=== PATIENT | female | born 1970 | race Caucasian/White ===

== ENCOUNTER 2019-03-29 13:34 | Inpatient (IN) ==
--- NOTE | 2019-03-29 14:13 | PROVIDER DOCUMENTATION ---
HPI-Respiratory General - General Chief Complaint: Shortness of Breath Stated Complaint: SENT FROM URGENT CARE SOB Time Seen by Provider: 03/29/19 14:01 Source: patient Allergies/Adverse Reactions: Patient Allergies Allergy/AdvReac Type Severity Reaction Status Date / Time No Known Allergies Allergy Verified 12/20/14 16:29 Home Medications: Home Medication List Medication Instructions Recorded Confirmed Last Taken Type Aripiprazole [Abilify] 10 mg PO DAILY 03/29/19 03/29/19 Unknown History Duloxetine [Cymbalta] 60 mg PO DAILY 03/29/19 03/29/19 Unknown History Hydrocodone/Acetaminophen [[place] 1 ea PO TID 03/29/19 03/29/19 Unknown History 10-325 Tablet] Phentermine HCl [Adipex-P] 1 tab PO DAILY 03/29/19 03/29/19 Unknown History - History of Present Illness-Resp Nature of Presenting Problem: Patient is a 48yo F who presents with complaints of dry cough, shortness of breath, fatigue, dyspnea on exertion, and decreased appetite x3 months. Reports upon awakening this morning, symptoms worsened and she was seen at [facility]. States they mazin blood and did a chest x-ray. Reports she was told her chest x-ray was "fluffy" and to come to the ER. Patient also reports mild orthopnea. Reports she is a daily smoker and has been for years. Denies any previous diagnoses of COPD. Denies fever/chills, CP, palpitations, syncope, abdominal pain, n/v/d. Upon examination, patient is able to speak in sentences with some pauses between words. No accessory muscle usage/retractions noted, however some increased work of breathing noted. O2 saturation 94-97% on RA. Quality of Pain: reports: aching Severity in ED: reports: mild Onset/Duration: reports: this morning (worsened), other (3 months) Timing: reports: still present, getting worse Exposure: reports: unknown cause Cough Quality/Degree: reports: mild, dry cough Current Respiratory Medication Therapy: Initiated none Modifying Factors: improves with: rest, sitting upright. worse with: exertion, lying down Associated Symptoms: reports: cough (dry), shortness of breath. denies: chest pain/soreness, dizziness, facial pain, fever/chills, flu-like symptoms, headac he, hurts to breathe, nasal congestion, sweaty, wheezing Similar Symptoms Previously?: No Recently seen or treated by another doctor?: No Review of Systems - Adult - REVIEW OF SYSTEMS - ADULT Constitutional: reports: fatique. denies: chills, fever, night sweats, weight gain, weight loss Eyes: reports: no symptoms reported Ears, Nose, Mouth & Throat: reports: no symptoms reported. denies: ear pain, sinus problem, throat pain Cardiovascular: reports: no symptoms reported. denies: chest pain, palpitations Respiratory: reports: see HPI, cough (dry), dyspnea on exertion, shortness of breath. denies: pleurisy, wheezing Gastrointestinal: reports: see HPI, poor appetite. denies: abdominal pain, nausea, vomiting Genitourinary: reports: no symptoms reported Musculoskeletal: reports: no symptoms reported Integumentary: reports: no symptoms reported Neurological: reports: no symptoms reported. denies: dizziness/vertigo, headache/migraines Psychiatric: reports: no symptoms reported Endocrine: reports: no symptoms reported Past History - Adult - PAST MEDICAL HISTORY-ADULT Review of Records: reports: Nursing Assessment Review, Medications Reviewed Major Childhood Illnesses: reports: denies history Cardiovascular: reports: denies history Respiratory: reports: denies history Gastrointestinal: reports: denies history Obstetrical/Gynecological: reports: denies history Genitourinary: reports: denies history Musculoskeletal: reports: denies history Neurological: reports: denies history Endocrine/Immune: reports: denies history Other Conditions: reports: denies history - PRIOR SURGERIES/PROCEDURES Surgical/Procedure History: reports: reviewed, not pertinent, hysterectomy, tonsillectomy - PRIOR HOSPITALIZATIONS Prior Hospitalizations: reports: none - IMMUNIZATION STATUS Childhood Immunizations: See Nurse Assessment Flu Vaccine: See Nurse Assessment - FAMILY HISTORY Family History: reviewed, not pertinent - SOCIAL HISTORY Smoking: cigarettes Provider spent 3-5 mins advising pt. on dangers of tobacco.: Discussed manners to quit use, and f/u contacts for add'l counseling. Physical Exam-General - PHYSICAL EXAM-ADULT Initial Vital Signs Reviewed: Yes - CONSTITUTIONAL General Appearance: alert, mild distress. negative: lethargic, slow to respond, obtunded - EYES Eyes: PERRL/EOMI, pink conjunctivae. negative: EOM palsy, scleral icterus - HEAD, EARS, NOSE, MOUTH & THROAT HENMT: normocephalic/atraumatic, moist mucous membranes - NECK Neck: non-tender, full range of motion, supple, normal inspection - RESPIRATORY Respiratory: chest non-tender, no pleuratic chest pain, no accessory muscle use, rhonchi (all lung brownlee), other (some increased work of breathing). negative: decreased breath sounds, crackles, rales, stridor, wheezing, retractions, splinting - CARDIOVASCULAR Cardiovascular: tachycardia (106) - GASTROINTESTINAL (ABDOMEN) Abdominal Exam: normal bowel sounds, non tender, soft - MUSCULOSKELETAL Back Exam: normal inspection Extremity: normal range of motion, non-tender, normal gait, normal inspection, pelvis stable - SKIN Integumentary: normal color, warm/dry. negative: cyanosis, jaundice, mottled, pallor - NEUROLOGIC Neurologic: grossly normal - PSYCHIATRIC Psych/Mental Status: normal mood/affect, normal thought content, normal thought process, oriented x 3 Progress - PLAN OF CARE/RESULTS Progress/Plan/Lab Results: Vital Signs - 8 hr 03/29/19 13:41 03/29/19 14:33 03/29/19 15:53 Temperature 98.2 F Pulse Rate 106 H 99 H 100 H Respiratory Rate 19 22 23 Blood Pressure 119/80 O2 Sat by Pulse Oximetry 94 L Laboratory Results - last 24 hr 03/29/19 03/29/19 03/29/19 14:10 14:10 14:10 WBC 12.54 H RBC 3.71 L Hgb 10.5 L Hct 31.8 L MCV 85.7 MCH 28.3 MCHC 33.0 RDW Std Deviation 17.2 H Plt Count 241 MPV 8.9 Immature Gran % (Auto) 0.0 Neut % (Auto) 82.9 H Lymph % (Auto) 12.4 L Prentiss % (Auto) 4.3 Eos % (Auto) 0.3 Baso % (Auto) 0.1 Immature Gran # (Auto) 0.00 Neut # (Auto) 10.39 H Lymph # (Auto) 1.56 Prentiss # (Auto) 0.54 Eos # (Auto) 0.04 Baso # (Auto) 0.01 D-Dimer, Quantitative Specimen Type Sample Site pH pCO2 pO2 HCO3 Base Excess Oxyhemoglobin ABG O2 Sat (Calculated) ABG O2 Saturation ABG Carboxyhemoglobin ABG Methemoglobin Toño Test A-a O2 Difference Total Hemoglobin Lactate Liter Flow Blood Gas Modality FiO2 % Sodium 147 H Potassium 3.5 Chloride 112 H Carbon Dioxide 18 L Anion Gap 17 BUN 15 Creatinine 1.0 H Estimated GFR/1.73 m2 59 BUN/Creatinine Ratio 15 Glucose 127 H Calculated Osmolality 295 Calcium 8.8 Total Bilirubin < 0.15 L AST 40 H ALT 18 Alkaline Phosphatase 100 Creatine Kinase 97 Troponin T Oph-W-Qyugvucywdd Pept 187 Total Protein 6.5 Albumin 4.0 Globulin 2.5 Albumin/Globulin Ratio 1.6 Urine Source Urine Color Urine Turbidity Urine pH Ur Specific [place] Urine Protein Ur Glucose (Stick) Ur Ketones (Stick) Urine Blood Urine Nitrite Urine Bilirubin Urobilinogen Dipstick Urine Leukocytes Urine WBC (Auto) Urine RBC (Auto) U Epithel Cells (Auto) Urine Bacteria (Auto) 03/29/19 03/29/19 03/29/19 14:10 14:10 14:40 WBC RBC Hgb Hct MCV MCH MCHC RDW Std Deviation Plt Count MPV Immature Gran % (Auto) Neut % (Auto) Lymph % (Auto) Prentiss % (Auto) Eos % (Auto) Baso % (Auto) Immature Gran # (Auto) Neut # (Auto) Lymph # (Auto) Prentiss # (Auto) Eos # (Auto) Baso # (Auto) D-Dimer, Quantitative 0.62 H Specimen Type ARTERIAL Sample Site R RADIAL pH 7.47 H pCO2 30 L pO2 80 HCO3 24.0 Base Excess -1.2 Oxyhemoglobin 95.7 ABG O2 Sat (Calculated) 13.7 L ABG O2 Saturation 100.2 H ABG Carboxyhemoglobin 4.20 H ABG Methemoglobin 0.3 Toño Test YES A-a O2 Difference 32.0 Total Hemoglobin 10.1 L Lactate 0.50 Liter Flow 0.0 Blood Gas Modality ROOM AIR FiO2 % 21.0 Sodium Potassium Chloride Carbon Dioxide Anion Gap BUN Creatinine Estimated GFR/1.73 m2 BUN/Creatinine Ratio Glucose Calculated Osmolality Calcium Total Bilirubin AST ALT Alkaline Phosphatase Creatine Kinase Troponin T < 0.010 Eio-Z-Ugcseshszae Pept Total Protein Albumin Globulin Albumin/Globulin Ratio Urine Source Urine Color Urine Turbidity Urine pH Ur Specific [place] Urine Protein Ur Glucose (Stick) Ur Ketones (Stick) Urine Blood Urine Nitrite Urine Bilirubin Urobilinogen Dipstick Urine Leukocytes Urine WBC (Auto) Urine RBC (Auto) U Epithel Cells (Auto) Urine Bacteria (Auto) 03/29/19 14:55 WBC RBC Hgb Hct MCV MCH MCHC RDW Std Deviation Plt Count MPV Immature Gran % (Auto) Neut % (Auto) Lymph % (Auto) Prentiss % (Auto) Eos % (Auto) Baso % (Auto) Immature Gran # (Auto) Neut # (Auto) Lymph # (Auto) Prentiss # (Auto) Eos # (Auto) Baso # (Auto) D-Dimer, Quantitative Specimen Type Sample Site pH pCO2 pO2 HCO3 Base Excess Oxyhemoglobin ABG O2 Sat (Calculated) ABG O2 Saturation ABG Carboxyhemoglobin ABG Methemoglobin Toño Test A-a O2 Difference Total Hemoglobin Lactate Liter Flow Blood Gas Modality FiO2 % Sodium Potassium Chloride Carbon Dioxide Anion Gap BUN Creatinine Estimated GFR/1.73 m2 BUN/Creatinine Ratio Glucose Calculated Osmolality Calcium Total Bilirubin AST ALT Alkaline Phosphatase Creatine Kinase Troponin T Gca-I-Chcqcsfjypp Pept Total Protein Albumin Globulin Albumin/Globulin Ratio Urine Source CLEAN CATCH Urine Color YELLOW Urine Turbidity CLEAR Urine pH 6.0 Ur Specific [place] 1.037 Urine Protein 100 A Ur Glucose (Stick) NEGATIVE Ur Ketones (Stick) 40 A Urine Blood MODERATE A Urine Nitrite NEGATIVE Urine Bilirubin NEGATIVE Urobilinogen Dipstick 2 A Urine Leukocytes NEGATIVE Urine WBC (Auto) <10 Urine RBC (Auto) <10 U Epithel Cells (Auto) <10 Urine Bacteria (Auto) NEGATIVE Orders Category Date Time Status Admit - [facility] Routine AdmDCTranf 03/29/19 17:04 Active Activity - Up with Assistance ORDERED Care 03/29/19 17:04 Active Cardiac Monitoring DIRECTED Care 03/29/19 14:25 Active Intake and Output-Strict ORDERED Care 03/29/19 17:04 Active Oxygen Therapy- ED Nursing DIRECTED Care 03/29/19 14:25 Active Saline Loc NOW Care 03/29/19 15:25 Active Update & Confirm Home Medicati ROUTINE Care 03/29/19 17:06 Active Vital Signs Order Q 8-HR ASSESS Care 03/29/19 17:04 Active Z-Document. for Tele Applied ORDERED Care 03/29/19 17:05 Active Regular Diet Diet 03/29/19 16:45 Active CHEST-2 VIEWS [RAD] Stat Exams 03/29/19 14:[address] ANGIOGRM PULMONARY ARTERIES [CT] Stat Exams 03/29/19 15:20 Completed ABG [RESP] Routine Lab 03/29/19 14:40 Completed BASIC METABOLIC PANEL [CHEM] Routine Lab 03/30/19 06:00 Uncollected BLOOD CULTURE [BLDCUL] Stat Lab 03/29/19 16:19 Results CBC WITH DIFF [HEME] Routine Lab 03/30/19 06:00 Uncollected CBC WITH ELECTRONIC DIFF [HEME] Stat Lab 03/29/19 14:10 Completed CK PROFILE [SP CHEM] Stat Lab 03/29/19 14:10 Completed COMPREHENSIVE METABOLIC PANEL [CHEM] Stat Lab 03/29/19 14:10 Completed D-DIMER [COAG] Stat Lab 03/29/19 14:10 Completed PRO B-NATRIURETIC PEPTIDE Stat Lab 03/29/19 14:10 Completed TROPONIN T Stat Lab 03/29/19 14:10 Completed URINALYSIS W/POSS RFLX CULT [URINALYSIS] Stat Lab 03/29/19 14:55 Completed URINE DRUG SCREEN Urgent Lab 03/29/19 17:19 Received Acetaminophen [Tylenol] Med 03/29/19 17:20 Ordered 650 mg PO Q6H PRN PRN Albuterol 2.5MG/Ipratrop 0.5MG [Duoneb (A & A)] Med 03/29/19 14:25 Discontinued 3 ml INH NOW ONE Albuterol 2.5MG/Ipratrop 0.5MG [Duoneb (A & A)] Med 03/29/19 15:30 Discontinued 3 ml INH NOW ONE Albuterol 2.5MG/Ipratrop 0.5MG [Duoneb (A & A)] Med 03/29/19 17:20 Ordered 3 ml INH Q2H PRN PRN Albuterol 2.5MG/Ipratrop 0.5MG [Duoneb (A & A)] Med 03/29/19 19:30 Ordered 3 ml INH RTQ4H Methylprednisolone Sod Succ [Solu-Medrol] Med 03/29/19 15:25 Discontinued 125 mg IM NOW ONE Methylprednisolone Sod Succ [Solu-Medrol] Med 03/29/19 15:30 Discontinued 125 mg IV NOW ONE Methylprednisolone Sod Succ [Solu-Medrol] Med 03/29/19 17:30 Ordered 60 mg IV Q8H Ondansetron [Zofran] Med 03/29/19 17:20 Ordered 4 mg IV Q4H PRN PRN Piperacillin/Tazobactam [Zosyn] 3.375 gm Med 03/29/19 16:19 Discontinued 0.9% Sodium Chloride Inj [Ns] 50 ml IV NOW Aerosol Treatments Routine Oth 03/29/19 14:25 Completed Aerosol Treatments Routine Oth 03/29/19 15:30 Completed Aerosol Treatments Routine Oth 03/29/19 17:20 Active Aerosol Treatments Stat Oth 03/29/19 14:25 Completed Aerosol Treatments Stat Oth 03/29/19 15:30 Completed Telemetry [OM.EQ] Routine Oth 03/29/19 17:04 Active EKG [EKG] Stat Ther 03/29/19 14:01 Ordered Transfer/Admit Order [TRANSFER] Routine Transfer 03/29/19 17:07 Ordered Imaging results, lab results, and plan of care discussed with patient who agrees with and verbalizes understanding. Patient notified of need for inpatient admission for bilateral pneumonia. She agrees with plan of care. Result Diagrams: 03/29/19 14:10 03/29/19 14:10 - EKG 1 Time of EKG reading by physician:: 13:49 EKG Read and Signed by:: Mikel Ch EKG Interpretation (*Must complete 3 of following elements*): Abnormal Rate: 103 Rhythm: Sinus tachycardia [place]: normal QRS: normal [place] Interval: normal ST Wave: normal Comments: Possible L atrial enlargement; cannot r/o anterior infarct, age undetermine - XRAY 1 XRAY: Bilateral XRAY Study: Chest ([facility] - [address] [place], [place] [id number] [facility] - [address] [place] [address] Department of Imaging Patient: RAIN BUSCH RAYADM Date: 03/29/19MR#: [id number] : 1970ADM [id number] Age/Sex: 48/FRoom/Bed: Loc: ED Ordering Physician: Valencia Arceo Family Physician: Kale Loyola Reason for Procedure: Cough/SOB ___ Signed CHEST-2 VIEWS - 03/29/2019 INDICATION: Cough/SOB COMPARISON: 07/27/2013 FINDINGS: There are extensive bilateral infiltrates right greater than left. Heart size is normal. No pneumothorax or pleural effusion. IMPRESSION: Extensive bilateral infiltrates. See chest CT report. Electronically signed by Chester Rhodes 03/29/2019 4:15 PM 03/29/[id number] Interpreting Physician: Chester Rhodes MD Dictated Date/Time: 03/29/19 161 cc: Valencia Arceo; Kale Loyola) - CT/MRI 1 CT Study: Angiogram (Pulmonary Arteries) Impression: See EMR Report ([facility] - [address] [place] [address] [place] [phone] [facility] - [address] [place] [id number] Department of Imaging Patient: RAIN BUSCH RAYADM Date: 03/29/19MR#: [id number] : 1970ADM Status[facility] [id number] Age/Sex: 48/FRoom/Bed: Loc: ED Ordering Physician: Valencia Arceo Family Physician: Kale Loyola Reason for Procedure: SOB; elevated d-dimer; tachycardia ___ Signed CT ANGIOGRM PULMONARY ARTERIES - 03/29/2019 INDICATION: SOB; elevated d-dimer; tachycardia TECHNIQUE: Axial CT images were obtained after administering intravenous contrast. Coronal MIP images were generated. COMPARISON: None FINDINGS: There is significant patient motion artifact. There is no obvious pulmonary embolism. No mass or adenopathy. Heart and great vessels are normal. Upper abdominal images are normal. There are extensive bilateral infiltrates right greater than left. These are heterogeneous, patchy, and mostly interstitial. Bones are intact. IMPRESSION: Negative pulmonary e mbolism. Extensive bilateral infiltrates. These may represent bronchopneumonia, viral pneumonia, or other atypical inflammatory pneumonitis. This exam was performed using automated exposure control, adjustment of mA or kV according to patient size, and/or use of iterative reconstruction technique Electronically signed by Chester Rhodes 03/29/2019 4:15 PM 03/29/19 1615 Interpreting Physician: Chester Rhodes MD Dictated Date/Time: 03/29/19 1611 cc: Valencia Arceo; Kale Loyola) - CONSULTS/PCP/HOSPITALIST Notification #1 *Consult/PCP/Hospitalist*: ORVILLE Daugherty Hospitalist Time Discussed: 16:55 Reason/Comments: Bilateral PNA; SOB; Tachycardia Consult Disposition: Admit Departure - Departure Date of Disposition Decision: 03/29/19 Time of Disposition Decision: 16:35 DIAGNOSIS: Shortness of breath, Tachycardia, Tobacco use Bilateral pneumonia Qualifiers: Pneumonia type: due to unspecified organism Lung location: unspecified part of lung Qualified Code(s): J18.9 - Pneumonia, unspecified organism Fatigue Qualifiers: Fatigue type: unspecified Qualified Code(s): R53.83 - Other fatigue Leukocytosis, unspecified Qualifiers: Leukocytosis type: unspecified Qualified Code(s): D72.829 - Elevated white blood cell count, unspecified Disposition: ADMITTED INPATIENT 09 Certified Medical Emergency: Emergent Condition: Fair Referrals and Follow-Ups: Kale Loyola [Primary Care Provider] - - Critical Care Note This patient required my direct & personal management of CC.: No Attestation - Physician/ JODI Attestation Patient care was provided by Advanced Practice Provider:: Yes Advanced Practice Provider:: Valencia Arceo Advanced Practice Provider documentation review:: The Mid-level provider documentation, treatment plan and medical decision making was reviewed by the physician who agrees with all treatment and medical decision making by the [facility]. The physician spent face to face time with patient:: Yes (Jing) Advanced Practice Provider documentation review:: Supervising physician onsite and consulted in the evaluation and care of this patient. The physician did have a face to face encounter with the patient.
--- NOTE | 2019-03-29 14:22 | EKG Report ---
Test Performed on : 03/29/2019 1:48:19 PM Test Reason : SOB Blood Pressure : / mmHG Vent. Rate : 103 BPM Atrial Rate : 103 BPM P-R Int : 168 ms QRS Dur : 080 ms QT Int : 298 ms P-R-T Axes : 028 032 019 degrees QTc Int : 390 ms Sinus tachycardia. Possible Left atrial enlargement Cannot rule out Anterior infarct , age undetermined Abnormal ECG No previous ECGs available Unconfirmed Result
[2019-03-29 14:24] LABS: BASO# 0.01 X1000 (0.0-0.2); BASO% 0.1 % (0.0-0.8); EOS# 0.04 X1000 (0.0-0.7); EOS% 0.3 % (0.0-10.0); HEMATOCRIT 31.8 % (37.0-47.0); HEMOGLOBIN 10.5 g/dL (12.0-16.0); LYMPH# 1.56 X1000 (1.2-3.4); LYMPH% 12.4 % (20.5-51.1); MCH 28.3 PG (27-31); MCV 85.7 FL (81-99); MONO# 0.54 X1000 (0.11-0.59); MONO% 4.3 % (1.7-9.3); MPV 8.9 FL (7.4-10.4); NEUT# 10.39 X1000 (1.4-6.5); NEUT% 82.9 % (42.2-75.2); PLT 241 X1000 (130-400); RBC 3.71 XMIL (4.2-5.4); RDW 17.2 % (11.5-14.5); WBC 12.54 X1000 (4.8-10.8)
[2019-03-29] MEDS ORDERED: DUONEB (A & A) INH ONE ×2 (14:25→15:30)
[2019-03-29 14:45] LABS: ALLEN TEST YES; BE -1.2 mmoll (-3.0-3.0); BLOOD TYPE ARTERIAL; METHB 0.3 % (0.0-1.5); MODALITY ROOM AIR; O2(CT) 13.7 mL/dL (15.0-23.0); O2HB 95.7 % (95.0-99.0); PCO2(98.6) 30 mmHg (35-45); PO2(98.6) 80 mmHg (60-100); SAMPLE BLOOD; SAO2 100.2 % (95.0-100.0); THB 10.1 g/dL (11.5-17.4); pH(98.6) 7.47 (7.35-7.45)
[2019-03-29 15:03] LABS: URINE SOURCE CLEAN CATCH
[2019-03-29 15:06] LABS: BILIRUBIN URINE NEGATIVE (NEGATIVE); BLOOD URINE MODERATE (NEGATIVE); COLOR YELLOW; GLUCOSE URINE NEGATIVE (NEGATIVE); KETONE URINE 40 mg/dL (NEGATIVE); LEUKOCYTES URINE NEGATIVE (NEGATIVE); NITRITE URINE NEGATIVE (NEGATIVE); PROTEIN URINE 100 mg/dL (NEGATIVE); SP GRAVITY URINE 1.037; TURBIDITY URINE CLEAR (CLEAR); UROBILINOGEN URINE 2 mg/dL (NORMAL)
[2019-03-29 15:08] LABS: UR EPITHELIAL CELLS <10 /HPF (<10); URINE BACTERIA NEGATIVE /HPF; URINE RBC <10 /HPF (<10); URINE WBC <10 /HPF (<10)
[2019-03-29 15:12] LABS: AGAP 17; ALB/GLOB RATIO 1.6; ALKALINE PHOSPHATASE 100 U/L (32-104); BUN 15 mg/dL (8-22); CALCIUM 8.8 mg/dL (8.8-10.2); CHLORIDE 112 mmol/L (98-107); CK PROFILE 97 U/L (24-173); COSMO 295; ESTIMATED GFR 59; GLUCOSE 127 mg/dL (70-104); GOT 40 U/L (10-30); GPT 18 U/L (10-36); POTASSIUM 3.5 mmol/L (3.5-5.1); SODIUM 147 mmol/L (136-145); TCO2 18 mmol/L (25-35); TOTAL BILIRUBIN < 0.15 mg/dL (0.20-1.00); TOTAL PROTEIN 6.5 g/dL (6.3-8.3)
[2019-03-29] MEDS ORDERED: SOLU-MEDROL IM ONE (15:25)
[2019-03-29] MEDS ORDERED: SOLU-MEDROL IV ONE (15:30)
--- NOTE | 2019-03-29 16:17 | Diag Imaging Result Doc PS360 ---
CT ANGIOGRM PULMONARY ARTERIES - 03/29/2019 INDICATION: SOB; elevated d-dimer; tachycardia TECHNIQUE: Axial CT images were obtained after administering intravenous contrast. Coronal MIP images were generated. COMPARISON: None FINDINGS: There is significant patient motion artifact. There is no obvious pulmonary embolism. No mass or adenopathy. Heart and great vessels are normal. Upper abdominal images are normal. There are extensive bilateral infiltrates right greater than left. These are heterogeneous, patchy, and mostly interstitial. Bones are intact. IMPRESSION: Negative pulmonary embolism. Extensive bilateral infiltrates. These may represent bronchopneumonia, viral pneumonia, or other atypical inflammatory pneumonitis. This exam was performed using automated exposure control, adjustment of mA or kV according to patient size, and/or use of iterative reconstruction technique Electronically signed by Chester Rhodes 03/29/2019 4:15 PM
--- NOTE | 2019-03-29 16:18 | Diag Imaging Result Doc PS360 ---
CHEST-2 VIEWS - 03/29/2019 INDICATION: Cough/SOB COMPARISON: 07/27/2013 FINDINGS: There are extensive bilateral infiltrates right greater than left. Heart size is normal. No pneumothorax or pleural effusion. IMPRESSION: Extensive bilateral infiltrates. See chest CT report. Electronically signed by Chester Rhodes 03/29/2019 4:15 PM
[2019-03-29] MEDS ORDERED: ZOSYN 3.375 GM in NS 50 ML IV ONE (16:19)
[2019-03-29] MEDS ORDERED: DUONEB (A & A) INH PRN (17:20)
[2019-03-29] MEDS ORDERED: TYLENOL PO PRN (17:20)
[2019-03-29] MEDS ORDERED: ZOFRAN IV PRN (17:20)
[2019-03-29 17:42] LABS: UR AMPHETAMINES QUAL NONE DETECTED (NONE DETECT); UR BARBITUATES QUAL NONE DETECTED (NONE DETECT); UR BENZODIAZEPIN QUAL NONE DETECTED (NONE DETECT); UR CANNABINOIDS QUAL NONE DETECTED (NONE DETECT); UR COCAINE QUAL NONE DETECTED (NONE DETECT); UR METHADONE QUAL NONE DETECTED (NONE DETECT); UR OPIATES QUAL PRESUMPTIVE POSITIVE (NONE DETECT); UR OXYCODONE QUAL PRESUMPTIVE POSITIVE (NONE DETECT); UR PCP QUAL NONE DETECTED (NONE DETECT)
[2019-03-29] MEDS ORDERED: NICODERM PATCH TD ONE (18:12)
[2019-03-29] MEDS: NS 1,000 ML IV SCH (18:56)
--- NOTE | 2019-03-29 19:06 | HISTORY AND PHYSICAL ---
CHIEF COMPLAINT: He has shortness of breath, cough. HISTORY OF PRESENT ILLNESS: This is a 48-year-old female with a history of fibromyalgia, gastroesophageal reflux disease, and tobacco use. She presents to the emergency room after being evaluated at a local walk-in clinic for 3 months of decreased appetite, dyspnea on exertion, fatigue, and shortness of breath. She stated that she was evaluated at the walk-in clinic. They mazin blood, did a chest x-ray, told her that she had to be evaluated in the emergency room. She denied any syncope, dizziness, fevers or chills, or productive cough. PAST MEDICAL HISTORY: Fibromyalgia, gastroesophageal reflux disease. PAST SURGICAL HISTORY: Hysterectomy, tubal ligation, tonsillectomy. SOCIAL HISTORY: She smokes about a pack a day. She denies alcohol or illicit drug use. ALLERGIES: No known drug allergies. HOME MEDICATIONS: A list will be obtained by the nursing staff, and once verified, we will review and restart as appropriate. REVIEW OF SYSTEMS: Discussed with patient with pertinent positives stated in the HPI. She denied any syncope, dizziness, chest pain, palpitations, a productive cough, any fevers or chills, nausea/vomiting, diarrhea, constipation, black or bloody vomitus or stools, any hematuria, dysuria, frequency, or urgency. PHYSICAL EXAMINATION: GENERAL: This is a 48-year-old female, who is sitting up on the side of the bed in mild distress. EYES: Pupils are equal, round, react to light. EOMs are intact. Sclerae are anicteric. HENT: Head is normocephalic, atraumatic. Mucous membranes are moist. NECK: Supple with trachea midline. No JVD. CARDIOVASCULAR: Regular rate and rhythm. S1, S2 appreciated. She is tachycardic. She has no lower extremity edema. Calves are nontender bilateral with peripheral pulses palpable x4 extremities. PULMONARY: Breath sounds with rhonchi scattered throughout with some expiratory wheezing with right greater than left. Chest rises and falls symmetric with respiration. Chest wall is nontender to palpation. GASTROINTESTINAL: Abdomen is soft, nontender, nondistended with bowel sounds in all 4 quadrants. GENITOURINARY: She has no CVA or suprapubic tenderness. NEUROLOGIC: She is alert and oriented x3. SKIN: Warm and dry. DIAGNOSTIC STUDIES: WBC is 12.5 with hemoglobin 10.5, hematocrit 31.8, platelets of 241,000. D- dimer is 0.62. Sodium 147, potassium 3.5, BUN 15, creatinine 1 with a glucose of 127. ABGs: PH is 7.47 with a pCO2 of 30, PO2 of 80, and bicarbonate of 24; these are on room air. Urinalysis reveals ketones, protein with moderate blood, although there are less than 10 red blood cells. Urine drug screen reveals opiates and oxycodone presumptive positive. Blood cultures are pending. Sputum culture is ordered. Chest x-ray reveals extensive bilateral infiltrates with right greater than left. CTA pulmonary was negative pulmonary embolism. Extensive bilateral infiltrates that may represent bronchopneumonia, viral pneumonia, or other atypical inflammatory pneumonitis. ASSESSMENT AND PLAN: 1. Extensive bilateral infiltrates with differential of bronchopneumonia, viral pneumonia, or other atypical pneumonitis. Blood cultures have been obtained. We will ordered a sputum culture. We will continue Zosyn, and any further antibiotics will be culture driven. Give DuoNeb q.4 h. with q.2 h. p.r.n. with steroids to taper, incentive spirometer and CPT q.6 h. 2. Leukocytosis secondary to #1. As stated above. 3. Elevated D-dimer. CTA pulmonary revealed no pulmonary embolus. We will order a bilateral lower extremity Doppler. 4. Dehydration. We will continue with gentle hydration and recheck labs in the morning. 5. Gastroesophageal reflux disease. PPI. 6. Tobacco use dependence. Smoking cessation was discussed with the patient per Dr Guzman and in. 7. For DVT prophylaxis, we will use Lovenox and GI prophylaxis Prilosec. 8. Dr. Olson of Pulmonology and Dr. Noe of Infectious Disease will be consulted. Plan was discussed with Dr. Mcgraw. Further treatments pending hospital course. Dictated by ORVILLE Ag for Calvin Jackson MD cc: ORVILLE Ag MD
[2019-03-29] MEDS: DUONEB (A & A) INH SCH ×2 (19:39→23:33)
[2019-03-29] MEDS: SOLU-MEDROL IV SCH (22:04)
[2019-03-29] MEDS: ZOSYN 3.375 GM in NS 50 ML IV SCH (22:04)
[2019-03-30] MEDS: ZOSYN 3.375 GM in NS 50 ML IV SCH ×4 (03:25→21:31)
[2019-03-30] MEDS: NS 1,000 ML IV SCH ×2 (03:25→13:57)
[2019-03-30] MEDS: DUONEB (A & A) INH SCH ×6 (03:42→23:26)
[2019-03-30] MEDS: PRILOSEC PO SCH (06:12)
[2019-03-30] MEDS: SOLU-MEDROL IV SCH ×2 (06:12→13:56)
[2019-03-30] MEDS: LOVENOX SUBQ SCH (08:38)
--- NOTE | 2019-03-30 09:09 | INFECTIOUS DISEASE CONSULT REP ---
DATE: 03/30/2019 CONCLUSION: The patient is admitted to the hospital with bilateral pulmonary infiltrates. The patient states she has been sick for at least 3 months. As far as an infection goes, I think she could have tuberculosis or a fungal infection, such as histoplasmosis. I would think that a bacterial pneumonia would be less likely to last for a total of 3 months, but I think it is possible. The patient is a smoker, and I think it is possible that she has a malignancy in her lungs causing the infiltrates. The patient may have an immunoglobulin deficiency, and that may be causing her to have chronic pneumonia. RECOMMENDATIONS: I agree with starting the patient on Zosyn, and I agree with getting a Legionella antigen. I have also ordered a pneumococcal antigen, a histoplasma antigen, and I also ordered a QuantiFERON gold test. I am also going to order immunoglobulin levels on the patient. If the above tests are negative and the patient's infiltrates do not improve with antibiotics then I suggest preceding with a lung biopsy. PRESENT ILLNESS: The patient tells me that for the past 3 months, she has had a cough. She has dyspnea at rest, and especially dyspnea on exertion. She is lethargic. She does not have a good appetite. She does cough, but does not bring up any sputum. She did tell me that in the past, she has had a skin test for TB, which was negative. Studies thus far show a CBC with a white count of 12,540, hemoglobin 10.5, and platelet count 241,000. Arterial blood gases show a pH of 7.47, a PO2 of 80, and a pCO2 of 30. The creatinine is 1.0. GFR is 59. Liver function studies are normal. Urinalysis shows no white cells or bacteria. Chest x-ray shows bilateral infiltrates. A CT pulmonary angiogram showed extensive bilateral infiltrates, but no pulmonary emboli. PAST MEDICAL HISTORY/REVIEW OF SYSTEMS: Eyes and Ears: She has decreased hearing in the right ear. Her hearing is okay in the left ear, and her vision is okay. Neck: No stiffness. Respiratory: See present illness. Cardiac: No chest pain or palpitations. GI: No nausea, vomiting, or diarrhea. The patient is said to have gastroesophageal reflux disease. : No dysuria or flank pain. Bones/Joints/Muscles: The patient says she has fibromyalgia, and because of that, she has continued aching all over her body. Neurologic: No seizures. No loss of motor or sensory function. FIELD TECHNICIAN: She is a 4, para 3, AB 1. She has had a hysterectomy. Her one child was born by section, and the other two were vaginal deliveries. PREVIOUS HOSPITALIZATIONS AND OPERATIONS: She has had carpal tunnel surgery done, and a bladder tack done also. MEDICAL DISEASES: Positive for fibromyalgia and gastroesophageal reflux disease. INFECTIOUS DISEASE HISTORY: Negative for pneumonia and UTI. FAMILY HISTORY: Positive for diabetes mellitus, hypertension, myocardial infarction, stroke, and cancer. SOCIAL HISTORY: [place] She is . She takes care of her grandson. She has two dogs for pets. She smokes cigarettes, but she does not drink alcohol, and says she does not use drugs. However, drug screen was positive for opiates and oxycodone. She is unemployed, but she does take care of her grandson. MEDICATIONS: Medications taken at home include Abilify, Cymbalta, hydrocodone, and Adipex. ALLERGIES: The patient has no known drug allergies. PHYSICAL EXAMINATION: Vital Signs: Temperature is 97.9 degrees, pulse 78, respirations 21, blood pressure 124/71. The patient is 5 feet 2 inches tall and weighs 200 pounds. General: This is an obese, middle-aged female. She is in no acute distress. HEENT: She can hear my spoken words and see near objects. I do not see any white patches in her mouth. Neck: No meningismus. Lungs: Clear to auscultation. Cardiovascular: Regular heart rate. Abdomen: Soft and nontender. Neurologic: The patient is alert. She can move her extremities. There is no tremor. Her sensation is intact to touch. Her memory as regarding her medical history seemed to be good. She did, however, say that she did not take any drugs, and her drug screen was positive for opiates and oxycodone. Extremities: The patient has bilateral leg edema, but no erythema. Integument: No rash is noted. Thank you for the consult. cc: Sukhdeep Noe MD [facility]PITALAna
[2019-03-30] MEDS: ABILIFY PO SCH (11:14)
[2019-03-30] MEDS: CYMBALTA PO SCH (11:14)
[2019-03-30 13:13] LABS: HEMOGLOBIN 9.9 g/dL (12.0-16.0); IMM GRAN# 0.03 X1000 (0.0-0.04); IMM GRAN% 0.3 % (0.0-0.5); LYMPH# 0.69 X1000 (1.2-3.4); LYMPH% 6.3 % (20.5-51.1); MCH 27.7 PG (27-31); MCHC 31.9 g/dL (33-37); MCV 86.6 FL (81-99); MONO# 0.28 X1000 (0.11-0.59); MONO% 2.6 % (1.7-9.3); MPV 9.3 FL (7.4-10.4); NEUT# 9.93 X1000 (1.4-6.5); NEUT% 90.8 % (42.2-75.2); PLT 231 X1000 (130-400); RBC 3.58 XMIL (4.2-5.4); RDW 17.1 % (11.5-14.5); WBC 10.93 X1000 (4.8-10.8)
[2019-03-30] MEDS: NORCO-10 PO SCH ×2 (13:57→17:42)
[2019-03-30 14:20] LABS: AGAP 13; BUN 13 mg/dL (8-22); CALCIUM 8.8 mg/dL (8.8-10.2); CHLORIDE 105 mmol/L (98-107); COSMO 277; CREATININE 0.5 mg/dL (0.5-0.9); ESTIMATED GFR > 60; GLUCOSE 115 mg/dL (70-104); POTASSIUM 3.5 mmol/L (3.5-5.1); SODIUM 138 mmol/L (136-145); TCO2 20 mmol/L (25-35)
[2019-03-30 14:39] LABS: LYMPHS 9 % (21-51); SEGS 91 % (42-75)
--- NOTE | 2019-03-30 18:26 | PROGRESS NOTE ---
DATE: 03/30/2019 SUBJECTIVE: She has no major complaints. Breathing is still a bit off. OBJECTIVE: Vital signs: Blood pressure is 73/45 is what was last recorded, 124/71, heart rate is 84, respiratory rate of 15, temperature 98.6 degrees, O2 saturation 94% on room air. Cardiovascular: Regular rate and rhythm. Pulmonary: Bilateral breath sounds clear to auscultation. Gastrointestinal: Soft, nontender, nondistended. Bowel sounds are positive. Extremity exam: No clubbing or cyanosis. Lymphatic exam: No peripheral edema. Neurological exam: Nonfocal. LABORATORY DATA: White count was 10, hemoglobin and hematocrit 9.1 and 31, platelets 231,000. Basic was normal. PROBLEM LIST: 1. Bilateral pneumonia, bronchopneumonia. We will continue empiric antibiotics. He is on Zosyn. 2. Elevated D-dimer. CTA is negative. Venous Dopplers I do not have back yet. ID and Pulmonary have been consulted so plan is to continue treatment and follow. The patient is on Zosyn alone, and Dr. Noe has continued that for the time being. 3. Fibromyalgia. We will continue regular medications and follow. DISPOSITION: Anticipate discharge hopefully soon in the next couple of days pending clinical status. cc: Nolan Patel MD
[2019-03-31] MEDS: SOLU-MEDROL IV SCH ×2 (01:12→06:07)
[2019-03-31] MEDS: NS 1,000 ML IV SCH (01:26)
[2019-03-31] MEDS: DUONEB (A & A) INH SCH ×4 (03:29→15:44)
[2019-03-31] MEDS: ZOSYN 3.375 GM in NS 50 ML IV SCH ×2 (04:37→10:34)
--- NOTE | 2019-03-31 07:28 | Diag Imaging Result Doc PS360 ---
EXAM: CHEST-2 VIEWS INDICATION: hypoxia TECHNIQUE: 2 views COMPARISON: 03/29/2019 FINDINGS: Given differences in technique, the bilateral infiltrates, more prominent on the right, are essentially stable. No new consolidation is identified. Cardiac silhouette is stable. IMPRESSION: Essentially stable chest. Electronically signed by Gigi Matias 03/31/2019 7:25 AM
[2019-03-31] MEDS: LOVENOX SUBQ SCH (09:15)
--- NOTE | 2019-03-31 09:15 | PULMONOLOGY CONSULTATION ---
DATE: 03/30/2019 REQUESTING CLINICIAN: ORVILLE Mata. REASON FOR CONSULTATION: Extensive bilateral infiltrates. HISTORY OF PRESENT ILLNESS: Ms. Patterson is a 48-year-old white female with a long history of tobacco use who reports increased cough with increased shortness of breath over the last 3 months. Despite these symptoms, she has not stopped smoking. The patient has had increasing shortness of breath. She was evaluated in an urgent care clinic and was diagnosed with a pneumonitis. The patient was referred to the emergency room for additional evaluation and management. A CT pulmonary angiogram was performed which revealed diffuse bilateral infiltrates with a ground-glass appearance. The patient reports she may have had an occasional fever or chill, but this is not prominent in her history. She denies significant sputum production. She has had no recent travel. She has 2 dogs, but no other pets. She denies recent exposure to mold. She will frequently eat late at night, but denies significant reflux. She was admitted to the hospital yesterday, but reports her breathing has improved. PAST MEDICAL HISTORY: 1. Chronic pain syndrome (nonspecific) on chronic pain medications. 2. Fibromyalgia. 3. Depression. 4. Attention deficit disorder. 5. Obesity. 6. Status post hysterectomy. 7. Status tubal ligation. 8. Status post tonsillectomy. SOCIAL HISTORY: Ongoing tobacco use as per above. She denies alcohol use. FAMILY HISTORY: Noncontributory to current presentation. REVIEW OF SYSTEMS: Positive for dyspnea on exertion, generalized fatigue with hypersomnia, cough, intermittent subjective fever and chill. PHYSICAL EXAMINATION: General: Reveals an obese white female who is awake, alert, and comfortable on room air. Vitals: Blood pressure 122/68, heart rate 69, respiratory rate 19, oxygen saturation 96%. HEENT: Pupils are equal and reactive. Oropharynx is clear. Neck: Supple. Chest: Crackles bilaterally. Cardiac Exam: S1-S2. Abdomen: Soft and obese. Extremities: Without edema. LABORATORIES: White blood count on admission 12.54. White blood count today 10.93. Sodium 138, potassium 3.5, chloride 105, bicarbonate 20, BUN 13, creatinine 0.5, glucose 115. CT scan as per above. IMPRESSION: A 48-year-old with extensive tobacco history, reflux, on chronic pain medicines who presents with a 3-month history of progressive dyspnea and cough. CT scan reveals patchy bilateral pneumonia. The patient has: 1. Abnormal CT scan with bilateral ground-glass pneumonia. 2. Cough. 3. Dyspnea on exertion. 4. Gastroesophageal reflux. DISCUSSION: This is a 48-year-old with problems outlined above. The patchy pneumonitis is not typical for a community-acquired pneumonia. She may be having intermittent reflux, but the findings may be related to bronchiolitis or due to desquamative interstitial pneumonitis. At this juncture, I would recommend continuing steroids with anticipation of discharging on a 3 to 4 week steroid course beginning at 30 mg per day. Would recommend complete smoking cessation along with reflux precautions. If this represents a smoking-related illness, then she should show some radiographic improvement during that time frame. If she does not show outpatient improvement, then it would be recommended that a thoracoscopy be performed to diagnose her lung disease given her young age. RECOMMENDATION: 1. Agree with treating her for pneumonia as you are doing, but this does not appear to be a typical pneumonia. I agree with plans to obtain a QuantiFERON along with fungal studies. 2. Send a connective tissue profile to evaluate for connective tissue diseases. 3. Smoking cessation as per above. 4. Reflux precautions as per above. 5. From a pulmonary standpoint, she could be discharged soon with a steroid taper and an outpatient followup in my clinic. cc: Wayne Olson MD
[2019-03-31] MEDS: CYMBALTA PO SCH (09:16)
[2019-03-31] MEDS: PRILOSEC PO SCH (09:16)
[2019-03-31] MEDS: NORCO-10 PO SCH ×2 (09:17→13:32)
[2019-03-31] MEDS: ABILIFY PO SCH (09:19)
[2019-03-31 11:03] LABS: HEMATOCRIT 32.2 % (37.0-47.0); HEMOGLOBIN 10.2 g/dL (12.0-16.0); IMM GRAN% 0.8 % (0.0-0.5); LYMPH# 0.71 X1000 (1.2-3.4); LYMPH% 5.9 % (20.5-51.1); MCH 27.6 PG (27-31); MCHC 31.7 g/dL (33-37); MCV 87.3 FL (81-99); MONO% 3.3 % (1.7-9.3); MPV 9.1 FL (7.4-10.4); NEUT# 10.84 X1000 (1.4-6.5); PLT 250 X1000 (130-400); RBC 3.69 XMIL (4.2-5.4); RDW 17.2 % (11.5-14.5); WBC 12.05 X1000 (4.8-10.8)
[2019-03-31 11:37] LABS: BANDS 4 % (0-1); HYPOCHROM 1+; LYMPHS 8 % (21-51); MONO 4 % (1-9); SEGS 84 % (42-75)
[2019-03-31 11:52] LABS: AGAP 14; BUN 13 mg/dL (8-22); CHLORIDE 105 mmol/L (98-107); COSMO 288; CREATININE 0.5 mg/dL (0.5-0.9); ESTIMATED GFR > 60; GLUCOSE 244 mg/dL (70-104); POTASSIUM 3.8 mmol/L (3.5-5.1); SODIUM 140 mmol/L (136-145); TCO2 21 mmol/L (25-35)
[2019-03-31 12:08] VITALS: BP 113/63
--- NOTE | 2019-03-31 14:57 | INFECTIOUS DISEASE PROGRESS NO ---
DATE: 03/31/2019 PRESENT ILLNESS: The patient has bilateral pulmonary infiltrates. This may be due to an infection, or possibly could be due to a metastatic malignancy. The patient also appears to have oral candidiasis. MEDICATIONS: I placed the patient on Zosyn. Also, the patient was started on steroids. PHYSICAL EXAMINATION: Vital Signs: Temperature is 97.6 degrees, pulse 76, respirations 19, blood pressure 113/63. General: This is an obese, middle-aged female. She is in no acute distress. HEENT: She can hear my spoken words and see near objects. There is no drainage from the nose or ears. She does have a white coating on her tongue. Neck: No meningismus. Lungs: Clear to auscultation. Cardiovascular: Heart rate is regular. Abdomen: Soft and nontender. Neurologic: The patient is alert. She can move her extremities. There is no tremor. Integument: No rash. LABORATORY DATA: CBC shows a white count of 12,050, hemoglobin 10.2, and platelet count 250,000. Creatinine is 0.5. GFR is greater than 60. The Legionella and pneumococcal urinary antigens are negative. ASSESSMENT AND PLAN: The patient has bilateral pulmonary infiltrates. This may be due to an infection or it may have another etiology, such as a disseminated malignancy. I told the patient that I would like best to continue treating her with intravenous Zosyn at home, but she told me that there is no way she could afford that. Therefore, instead, I am going to send the patient home on Augmentin. Some side effects of Augmentin, rash,diarrhea, were explained to patient who agrees with treatment. I have requested that the patient make an appointment at my office for a visit in 2 weeks. The patient also appears to have oral candidiasis. I am made out a prescription prescription for Augmentin. Also the patient will have a follow up visit in my office in 2 weeks. am going to request that the patient come to my office in 2 weeks for an examination and also a chest x-ray. The patient also is going to be seeing Dr. Olson in followup. The patient currently is on steroids that Dr. Olson has started, and that may be accounting for the patient's leukocytosis. The patient will be seeing Dr. Olson in 2 weeks also. The patient's histoplasma serology and QuantiFERON test are both pending. She does have gastroesophageal reflux disease, which could cause her to aspirate. She also is a cigarette smoker. She denied using illicit drugs, but her drug screen did show opiates and oxycodone. COMORBIDITIES: Cigarette smoking and gastroesophageal reflux disease and possibly drug abuse. cc: Sukhdeep Noe MD [facility]
--- NOTE | 2019-03-31 15:50 | INFECTIOUS DISEASE PROGRESS NO ---
DATE: 03/31/2019 I also got a prescription printed up for the patient to have Mycelex troches which she should dissolve on her tongue every 8 hours while she is taking the Augmentin and steroids. cc: Sukhdeep Noe MD
--- NOTE | 2019-03-31 22:49 | PULMONOLOGY PROGRESS NOTE ---
DATE: 03/31/2019 SUBJECTIVE: The patient is awake, alert, and conversant. She reports her breathing continues to improve. She is on room air, and her oxygen saturation has increased to 99%. OBJECTIVE: Vital signs: The patient has been afebrile for the last 24 hours. Blood pressure 113/63, heart rate 76, respiratory rate 19. HEENT: Pupils are equal and reactive. Oropharynx appears clear. Neck: Supple. Chest: Reveals occasional crackles bilaterally but with significant air flow bilaterally. Cardiac Exam: S1, S2. Abdomen: Soft. Extremities: Without edema. IMAGING: Chest x-ray reveals basilar infiltrates, right greater than left. There has been marginal improvement when compared to chest x-ray obtained 03/29/2019. MICROBIOLOGY: Sputum culture is pending. Connective tissue cascade, histoplasmosis antigen and QuantiFERON are pending. IMPRESSION: A 48-year-old with extensive tobacco history, gastroesophageal reflux with acute hypoxemic respiratory failure, bilateral pneumonia, dyspnea on exertion, cough. The patient continues to improve. She reports she feels significantly better than on admission. RECOMMENDATIONS: 1. Agree with plans for discharge today. 2. Would discharge on a course of antibiotics and steroids. 3. Follow up in my clinic in 2 weeks. 4. Smoking cessation and reflux precautions were discussed at length. The patient reports she has committed to smoking cessation and will change her dietary habits. cc: Wayne Olson MD
--- NOTE | 2019-04-01 05:24 | DISCHARGE SUMMARY ---
ADMISSION DATE: 03/29/2019 DISCHARGE DATE: 03/31/2019 ADMISSION DIAGNOSES: 1. Extensive bilateral infiltrates with differential of bronchopneumonia, viral pneumonia, or atypical pneumonitis. 2. Leukocytosis secondary to #1. 3. Elevated D-dimer. 4. Dehydration. 5. Gastroesophageal reflux disease. 6. Tobacco abuse. DISCHARGE DIAGNOSES: 1. Atypical pneumonia with bilateral pulmonary infiltrates on chest x-ray. 2. Leukocytosis. 3. Elevated D-dimer. Negative for pulmonary embolism. 4. Dehydration, was hydrated with IV fluids. 5. Gastroesophageal reflux disease. Continue proton pump inhibitor. 6. Tobacco abuse. Cessation discussed. CONSULTATIONS: 1. Pulmonary, Dr. Olson. 2. Infectious Disease, Dr. Noe. SURGERIES AND PROCEDURES: None. HOSPITAL COURSE: Ms Berta Patterson is a 48-year-old female with a medical history of fibromyalgia, GERD, tobacco abuse, who presented to the emergency department after being evaluated at a local walk-in clinic. Apparently, for 3 months she has had decreased appetite, dyspnea on exertion, fatigue, and shortness of breath. Apparently in this walk-in clinic, they did lab work, x-rays, and told her she needs to go to the emergency department to be further evaluated. There was denial of cough, fevers or chills. The x-ray showed that she had some bronchopneumonia or a viral pneumonia, or possibly an atypical pneumonitis as she did have bilateral infiltrates. She had leukocytosis and was started on broad-spectrum antibiotics. A sputum culture was ordered, which is still pending results. Blood cultures were negative. Started on nebulizers, steroids, and consults were put in for Dr. Noe and Dr. Olson. She did have an elevated D-dimer, was sent for CTA of the lungs, was negative for PE. She was continued on her proton pump inhibitor for her GERD. She was educated on tobacco abuse and cessation. Dr. Noe saw her and felt like there is a possibility that she could have tuberculosis or fungal infection, such as histoplasmosis, and that bacterial pneumonia was less likely. She also felt like it was possible she could have a malignancy in the lungs causing infiltrates or an immunoglobulin deficiency causing chronic pneumonia, so they recommended Zosyn, getting a Legionella antigen, pneumococcal antigen, histoplasma antigen, and a QuantiFERON gold test, along with immunoglobulin levels, and felt like if those were all negative, then she would request a lung biopsy. The Legionella was negative. The strep pneumonia antigen was negative. Currently still pending all other labs. Will be followed up as an outpatient with that. Dr. Olson saw her and felt like she could be having some intermittent reflux causing some bronchiolitis or desquamatative interstitial pneumonitis, and recommended steroids for 3 to 4 weeks at 30 mg per day, and if she did not show outpatient improvement, recommends that she gets a Thorascopy to diagnose lung disease, given she is such a young person. She will be discharged home to follow up with Dr. Noe and Dr. Olson. She will be on steroids. DISCHARGE VITAL SIGNS: Temperature 97.6 degrees, heart rate 76, respiratory rate 19, blood pressure 113/63, O2 saturation 99% on room air. DISCHARGE LAB DATA: White blood cells 12,000, hemoglobin 10, hematocrit 32, platelet count 250,000. Sodium 140, potassium 3.8, BUN 13, creatinine 0.5. Glucose 244, calcium 9.0. Urine drug screen, she was positive for opiates and oxycodone. Urine Legionella negative. Urine strep pneumoniae negative. The immunoglobulin levels are not back. There are several others that are not back. PERTINENT IMAGIN. On 03/29, the chest x-ray, extensive bilateral infiltrates. 2. Pulmonary arteriogram, negative pulmonary embolism. Extensive bilateral infiltrates, may represent bronchopneumonia, viral pneumonia, or other atypical inflammatory pneumonitis. 3. Chest x-ray, essentially stable chest. DISCHARGE MEDICATIONS: 1. Antibiotics per Dr. Noe. Possibly will be on Augmentin and Cipro for 2 weeks. 2. High-dose steroid taper for 3 or 4 weeks, per recommendations of Dr. Olson. 3. Abilify 10 mg p.o. daily. 4. Phentermine 37.5 p.o. daily. 5. Cymbalta 60 mg p.o. daily. 6. Burnett 10 one tablet p.o. t.i.d. DISCHARGE DIET: Regular diet. DISCHARGE ACTIVITY: As tolerated. DISCHARGE INSTRUCTIONS: Follow up with Dr. Noe and Dr. Olson. DISCHARGE INSTRUCTIONS: If any signs or symptoms of shortness of breath, fever, weight loss, extreme pain, to seek medical advice through the emergency department. Need to follow up with your public works laborer, Dr. Olson, your Infectious Disease physician, Dr. Noe. Continue your 2 weeks of antibiotics and prednisone or Solu-Medrol steroids, as prescribed. DISCHARGE DISPOSITION: Home. Dictated by ORVILLE Peace for Torres Smart MD cc: ORVILLE Peace MD
--- NOTE | 2019-04-02 20:04 | Extremity Venous Study ---
PROCEDURE NAME: Venous U/S Bilateral Legs - 03/30/2019 MUTUAL FUND ANALYST: Sharmila. REQUESTING PHYSICIAN: Mariluz. INDICATIONS: Elevated D-dimer, shortness of breath. FINDINGS: Deep and superficial veins of bilateral lower extremities were visualized along their course. All vessels were compressible with forward flow and no evidence of intraluminal thrombus. There was incidentally noted reflux with Valsalva in the left common femoral vein, greater saphenous vein, and the superficial femoral vein. SUMMARY: No deep or superficial venous thrombosis seen in the bilateral lower extremities, with deep and superficial reflux noted in the left lower extremity. cc: MD Nissa Doan CRNP
== END 2019-03-31 15:58 | disposition home or self-care (01) | DRG 194 ==
LOC: ED 13:34 → 3N 17:13 → SUATTDRO 17:13
PROVIDERS: ATTEND Internal Medicine